=== PATIENT | male | born 1970 | race Caucasian/White ===

== ENCOUNTER 2025-04-21 11:02 | Emergency (ER) | payer SELFPAY ==
[2025-04-21 11:03] VITALS: BP 166/104
--- NOTE | 2025-04-21 11:50 | ED.GENMED ---
History of Present Illness
General
Chief Complaint: Blood Pressure Problem
Source: patient and family
Time Seen by Provider: 04/21/25 11:21
History of Present Illness
History of Present Illness:
54yoM with a history of hypertension presenting with his [id number] for evaluation of elevated blood pressure. Patient moved to the area from [facility] about a month ago and does not have a local PCP. His family members is assisting with
translation. For the past 4 days, he has been experiencing dizziness, headaches, and L sided chest discomfort. He describes the dizziness as feeling like he is not getting enough oxygen. These are the symptoms that he's had in the past when his
blood pressure was high. His chest discomfort improves slightly after taking his medications but does not go away. He also started having shortness of breath last night. He takes a combo pill of amlodipine 10mg/valsartan 160mg/HCTZ 25mg daily and
he reports compliance with his medications.
Phy Exam
General Physical Exam
General Presentation: well appearing and no apparent distress
General Skin: warm and dry
General Habitus: normal
General Mental: alert
ENT Exam
ENT Exam: normocephalic
Cardiovascular Exam
Cardiovascular Exam: regular rate/rhythm, no edema and no murmur
Pulmonary Exam
Pulmonary Exam: lungs clear, no respiratory distress, no rales, no crackles, no rhonchi and no wheezing
Neurological Exam
Neurological Exam: alert
[place] Coma Scale
Eye Opening: Spontaneous
Verbal Response: Oriented
Motor Response: Obeys Commands
GCS Total Score: 15
Skin Exam
Skin Exam: normal color and warm/dry
Psychiatric Exam
Psychiatric Exam: normal mood/affect
Course
Orders/Labs/Results
Orders:
Orders
04/21/25 11:48
Cardiac Monitoring- Treatment ONCE
04/21/25 11:49
Electrocardiogram (*1) Urgent
Reason for Study: Shortness of Breath
CT Head W/o Iv Contrast Urgent
Comment:
Reason For Exam: dizziness, hypertension
EKG- Treatment ONCE
CR Chest - 2 Views Urgent
Comment:
Reason For Exam: SOB
04/21/25 11:58
Complete Blood Count/With Diff Urgent
Comprehensive Metabolic Panel Urgent
D-Dimer Urgent
NT-proBNP Urgent
Troponin I Urgent
Abnormal Lab Results
04/21/25
11:58
BUN 23 H mg/dl
(9-20)
Glucose 102 H mg/dl
(70-99)
Total Bilirubin 1.5 H mg/dl
(0.2-1.3)
Total Protein 8.4 H g/dl
(6.3-8.2)
04/21/25 11:58
04/21/25 11:58
Vital Signs
Initial and Last Documented VS:
Initial Vital Signs
Temp Pulse Resp BP Pulse Ox
98 F 78 18 166/104 99
04/21/25 11:03 04/21/25 11:03 04/21/25 11:03 04/21/25 11:03 04/21/25 11:03
Last Documented Vital Signs
Temp Pulse Resp BP Pulse Ox
98 F 68 25 132/87 99
04/21/25 11:03 04/21/25 12:01 04/21/25 12:01 04/21/25 12:01 04/21/25 11:55
MDM/Problems Addressed
Differential Diagnosis Includes:
54yoM here with multiple symptoms including dizziness, VASQUEZ, SOB, and chest pain x 4 days. Feels like his blood pressure is high but has not checked. Recently moved here from [facility]. BP 166/104 in triage. Remainder of vitals are normal. He is well
appearing in no distress. Exam is reassuring. Differential diagnosis includes but is not limited to: hypertensive urgency, ACS, CHF
Initial ED plan: Check cardiac labs, EKG, CXR, and CT head.
*Pulse Oximetry
SaO2: 99
Oxygen Mode of Delivery: Room air
*EKG
Interpreted by ED Provider?: Yes
EKG Intrepretation Date: 04/21/25
Heart Rate: 66
Rate: normal
Rhythm: sinus
[place]: normal axis
Interval: normal interval
QRS Pattern: normal QRS
Ischemia: no ischemia
*Critical Care Note
Total Time (30-74mins, 75-104mins- exclusive of procedures): Not Applicable
Update Note
Update Note:
Labs overall unremarkable including normal renal function. Troponin, BNP, and D-dimer all normal. CXR shows evidence of an old granuloma but otherwise negative for acute findings. CT head normal. BP improved to 113/85 without intervention. He is
asymptomatic on reassessment and states his dyspnea has resolved. No indication for hospitalization. Advised f/u with PCP and contact information for free clinic provided. Patient discharged in stable condition.
ED Attending Note
-
Portions of this chart may have been created with voice recognition software.� Occasional wrong word or��sound alike� substitutions may have occurred due to the inherent limitations of voice recognition software.
Discharge Plan
Departure
Patient Disposition: Home (Routine Discharge)
Date of Disposition: 04/21/25
Time of Disposition: 13:15
Patient with high blood pressure during this ER visit?: No
Discharge Problem:
Shortness of breath
Instructions: High Blood Pressure (DC)
Referrals:
[facility] [Outside]
NONE,* [Family Provider, Internal Medicine]
Activity Restrictions/Additional Instructions:
Continue taking your blood pressure medications.
Please call today to schedule a follow-up with a family doctor. Return to the ER with any new or worsening symptoms.
Interventions
Interventions:
*Risk Screen - Suicide Last Done: 04/21/25 12:02
*General Assessment Last Done: 04/21/25 11:03
*Neglect/Abuse Screening Last Done: 04/21/25 12:02
*ED- Fall Risk Assessment Last Done: 04/21/25 12:02
ED- Cardiac Assessment Last Done: 04/21/25 12:03
ED- Neurological Assessment Last Done: 04/21/25 12:01
ED- Pulmonary Assessment Last Done: 04/21/25 12:01
Discharge Date and Time
Print Language: STATELESS
[2025-04-21 11:55] VITALS: BP 138/85
[2025-04-21 12:01] VITALS: BP 132/87
[2025-04-21 12:06] LABS: % Basophils 1.1 % (0-2); % Eosinophils 1.1 % (0-6); % Immature Granulocytes 0.5 % (0-0.5); % Lymphocytes 27.4 % (20.5-51.1); % Monocytes 6.5 % (1.7-9.3); % Neutrophils 63.4 % (42.2-75.2); Absolute Basophils 0.1 10^3/uL (0-0.2); Absolute Eosinophils 0.1 10^3/uL (0-0.7); Absolute Lymphocytes 2.3 10^3/uL (1.2-3.4); Absolute Monocytes 0.6 10^3/uL (0.1-0.6); Absolute Neutrophils 5.4 10^3/uL (1.4-6.5); Hematocrit 47.1 % (39.0-52.0); Hemoglobin 16.1 g/dL (13.0-18.0); Mean Corp Hgb Conc. 34.2 g/dL (33.0-37.0); Mean Corpuscular Hgb 28.3 pg (27.0-31.0); Mean Corpuscular Volume 82.8 fL (80.0-94.0); Mean Platelet Volume 9.8 fL (7.4-10.4); Nucleated Red Blood Cells % 0 % (-); Platelet Count 326 10^3/uL (130-400); Red Blood Cell Count 5.69 10^6/uL (4.70-6.10); Red Cell Dist. Width 12.9 % (11.5-14.5); White Blood Cell Count 8.5 10^3/uL (4.8-10.8)
[2025-04-21 12:20] LABS: ALT (SGPT) 41 U/L (0-50); AST (SGOT) 27 U/L (17-59); Albumin 4.9 g/dl (3.5-5.0); Alkaline Phosphatase 94 U/L (38-126); Blood Urea Nitrogen 23 mg/dl (9-20); Calcium 9.9 mg/dl (8.4-10.2); Carbon Dioxide 29 mmol/L (22-30); Chloride 106 mmol/L (98-107); Glucose 102 mg/dl (70-99); Potassium 4.3 mmol/L (3.5-5.1); Sodium 142 mmol/L (135-145); Total Bilirubin 1.5 mg/dl (0.2-1.3); Total Protein 8.4 g/dl (6.3-8.2); eGFR > 60.00
[2025-04-21 12:25] LABS: D-Dimer 0.45 ug/mlFEU (0.00-0.50)
[2025-04-21 12:33] LABS: NT-proBNP < 20.0 pg/ml; Troponin I < 0.012 ng/ml
== END 2025-04-21 13:24 | disposition home or self-care (01) ==
LOC: EMR 11:02
PROVIDERS: Physician Assistant; EMERGENCY PHYSICIAN Emergency Medicine
DX: I10 Essential (primary) hypertension (principal); Z79.899 Other long term (current) drug therapy; R06.02 Shortness of breath
CPT/HCPCS: 99284; 70450; 71046; 80053; 83880; 84484; 85025; 85379; 93005